=== PATIENT | female | born 1960 | race Caucasian/White ===

== ENCOUNTER 2017-04-14 07:10 | Day surgery (SDC) | payer BC ==
[2017-04-14] MEDS ORDERED: LIDOCAINE HCL 1% MPF SOL ONE (07:28)
[2017-04-14] MEDS ORDERED: PROPOFOL 500 MG/50 ML EMU IV ONE (07:28)
[2017-04-14 11:02] VITALS: BP 111/71; PULSE 64; RESP 18; TEMP 97.6; O2SAT 98
== END 2017-04-14 11:30 | disposition home or self-care (01) ==
LOC: SURG 07:10
PROVIDERS: ATTEND Surgery
DX: Z12.11 Encounter for screening for malignant neoplasm of colon (principal); Z86.010 Personal history of colon polyps; K57.30 Diverticulosis of large intestine without perforation or abscess without bleeding; K63.89 Other specified diseases of intestine
CPT/HCPCS: J2001; J2704

== ENCOUNTER 2017-10-15 07:37 | Day surgery (SDC) | payer BC ==
[2017-10-15] MEDS ORDERED: PROPOFOL 500 MG/50 ML EMU IV ONE (07:55)
[2017-10-15] MEDS ORDERED: LIDOCAINE HCL 1% MPF 30 SOL ONE (07:55)
[2017-10-15 09:39] VITALS: BP 114/68; PULSE 57; RESP 20; TEMP 97.7; O2SAT 99
== END 2017-10-15 09:50 | disposition home or self-care (01) ==
LOC: SURG 07:37
PROVIDERS: ATTEND Surgery
DX: R10.13 Epigastric pain (principal); D50.9 Iron deficiency anemia, unspecified; K92.1 Melena; K29.70 Gastritis, unspecified, without bleeding
CPT/HCPCS: 99001; J2001; J2704